=== PATIENT | male | born 1990 | race Caucasian/White ===

== ENCOUNTER 2022-07-05 16:40 | Emergency (ER) | payer MEDICARE, MEDICAID, SELFPAY ==
[2022-07-05] VITALS (7 sets, daily range): BP systolic 123–155; BP diastolic 65–113; PULSE 85–99; RESP 16–20; TEMP 36.5–36.9; O2SAT 97–99; BMI 40.4
--- NOTE | 2022-07-05 17:16 | EX.ED.VIS.PS ---
HPI HPI - Psych History of Present Illness Chief Complaint: Suicidal Narrative Narrative: 31-year-old male presenting from [facility]. Apparently he was telling people there that he is hearing voices and they are telling him to hurt himself. He cannot tell me what the voices are saying. He is also hallucinating but cannot tell me what he is seeing. He states he himself does not feel like he wants to hurt himself. He has not been attempted hurt others. He does not know what medicines he supposed to be on. He does not know any of his medical problems. He states he just cannot remember. PFSH PFSH Home Medications benztropine 2 mg tablet 2 mg PO BID 07/05/22 [History Last Taken Unknown] lamotrigine 25 mg tablet 50 mg PO BID 07/05/22 [History Last Taken Unknown] metformin 500 mg tablet,extended release 24 hr 1,000 mg PO BID 07/05/22 [History Last Taken Unknown] olanzapine 10 mg tablet 15 mg PO DAILY 07/05/22 [History Last Taken Unknown] olanzapine 15 mg tablet 15 mg PO QHS 07/05/22 [History Last Taken Unknown] paliperidone 6 mg tablet,extended release 24 hr 6 mg PO DAILY 07/05/22 [History Last Taken Unknown] propranolol 20 mg tablet 20 mg PO BID 07/05/22 [History Last Taken Unknown] Allergy/AdvReac Type Severity Reaction Status Date / Time No Known Allergies Allergy Verified 07/05/22 16:47 Social History Smoking Status: Unknown if ever smoked ROS [facility] ED Constitutional Constitutional ED: Denies chills or fever(s) ENT ENT ED: Denies rhinorrhea or sore throat Cardiovascular Cardiovascular: Denies chest pain or palpitations Respiratory/Chest Respiratory/Chest: Denies cough or dyspnea Gastrointestinal Gastrointestinal: Denies abdominal pain, constipation, nausea or vomiting Genitourinary Genitourinary ED: Denies dysuria Musculoskeletal Musculoskeletal: Denies arthralgias Integumentary Denies abscess Neurologic Neurologic: Denies headache(s) Psychiatric Psychiatric: Reports other Details: Hearing voices and visual hallucinations. Endocrine Endocrinology: Denies polydipsia or polyphagia EXAM Physical Exam Const Vital Signs: 07/05/22 16:42 07/05/22 18:29 07/05/22 18:39 Temperature 98.5 F 97.7 F L Temperature Source Temporal Temporal Pulse Rate 99 85 Respiratory Rate 16 16 Blood Pressure 155/113 H 123/83 H Blood Pressure Mean 127 96 Pulse Ox 98 97 Oxygen Delivery Method Room Air Room Air 07/05/22 19:18 07/05/22 20:37 07/05/22 22:27 Temperature Temperature Source Pulse Rate 90 86 Respiratory Rate 16 16 20 H Blood Pressure 126/65 H Blood Pressure Mean 85 Pulse Ox 99 99 99 Oxygen Delivery Method Room Air Room Air Room Air Positive well nourished, obese and unkempt General Appearance ED: unkempt and NAD; Negative for pallor Nutritional Appearance: obese HEENT Reports moist mucous membranes normocephalic and atraumatic Eyes PERRL and EOMs intact bilaterally Neck no lymphadenopathy Resp normal respiratory effort and clear to auscultation bilaterally GI non-tender Neuro oriented x3 and CN's II-XII intact bilaterally Sensorium / Orientation: alert Psych Appearance: unkempt and bizarre Attitude: bizarre Activity / Motor Behavior: disorganized Thought Process: disorganized and confused Thought Content: No suicidality, No homicidality and hallucination(s) Positive for auditory and visual Attention / Concentration: attention grossly impaired and concentration grossly impaired Memory / Cognition: cognition grossly impaired Insight: poor Judgement: poor Skin General Skin Exam: Negative for jaundice or pallor MDM MDM MDM Narrative Medical decision making narrative: Patient discussed with social work. tie up worker was able to determine that he was saying he was suicidal at the facility he was at. He apparently has a history of paranoid schizophrenia and when he is in the state he has been known to run away from the home. He was reported to me that the last time he felt this way he ran away and was found 5 days later eating grass. Patient unable to give me too much information but the manager social was able to speak with the people his facility and they stated that he repeatedly said he was having a nervous breakdown. Blood work is obtained and is a slight leukocytosis at 14.6. Hemoglobin hematocrit are stable. Renal function and electrolytes are fairly normal with exception of potassium 3.4. This was repleted orally. LFTs are within normal limits. EtOH negative. Urine drug screen positive for cannabinoids. Rapid COVID is negative. I think his white blood cell count is likely reactive. Patient medically clear at this time. Patient will be signed out to incoming ED provider for monitoring. Currently he is awaiting assessment by [facility]. This is likely where he will go. Impression: 1. Leukocytosis 2. History of paranoid schizophrenia 3. Suicidal ideation 4. Delirium 5. Visual hallucinations 6. Audible hallucinations Lab Data Attestation: I reviewed the patient's lab results. Labs: Laboratory Results - last 24 hr 07/05/22 07/05/22 07/05/22 17:30 17:30 17:30 WBC 14.6 H RBC 4.89 Hgb 14.5 Hct 43.3 MCV 88.5 MCH 29.7 MCHC 33.5 RDW Std Deviation 42.7 RDW Coeff of Bianca 13.2 Plt Count 306 MPV 9.6 Immature Gran % (Auto) 0.600 Neut % (Auto) 73.2 H Lymph % (Auto) 17.1 L Adams % (Auto) 5.3 Eos % (Auto) 3.2 Baso % (Auto) 0.6 Absolute Neuts (auto) 10.7 H Absolute Lymphs (auto) 2.49 Nucleated RBC % 0 Sodium 138 Potassium 3.4 L Chloride 105 Carbon Dioxide 25.0 Anion Gap 8 BUN 6 L Creatinine 0.88 Estim Creat Clear Calc 128.35 Est GFR (MDRD) Af Amer 128 Est GFR (MDRD) Non-Af 106 BUN/Creatinine Ratio 6.8 L Glucose 132 H Calcium 9.1 Total Bilirubin 0.40 AST 18 ALT 45 Alkaline Phosphatase 80 Total Protein 7.5 Albumin 3.9 Globulin 3.6 Albumin/Globulin Ratio 1.1 Urine Opiates Screen Urine Methadone Screen Ur Barbiturates Screen Ur Phencyclidine Scrn Ur Amphetamines Screen MDMA (Ecstasy) Screen U Benzodiazepines Scrn Urine Cocaine Screen U Cannabinoids Screen Ur Drug Screen Comment Ethyl Alcohol 5.0 07/05/22 17:30 WBC RBC Hgb Hct MCV MCH MCHC RDW Std Deviation RDW Coeff of Bianca Plt Count MPV Immature Gran % (Auto) Neut % (Auto) Lymph % (Auto) Adams % (Auto) Eos % (Auto) Baso % (Auto) Absolute Neuts (auto) Absolute Lymphs (auto) Nucleated RBC % Sodium Potassium Chloride Carbon Dioxide Anion Gap BUN Creatinine Estim Creat Clear Calc Est GFR (MDRD) Af Amer Est GFR (MDRD) Non-Af BUN/Creatinine Ratio Glucose Calcium Total Bilirubin AST ALT Alkaline Phosphatase Total Protein Albumin Globulin Albumin/Globulin Ratio Urine Opiates Screen NEGATIVE Urine Methadone Screen NEGATIVE Ur Barbiturates Screen NEGATIVE Ur Phencyclidine Scrn NEGATIVE Ur Amphetamines Screen NEGATIVE MDMA (Ecstasy) Screen NEGATIVE U Benzodiazepines Scrn NEGATIVE Urine Cocaine Screen NEGATIVE U Cannabinoids Screen POSITIVE H Ur Drug Screen Comment Ethyl Alcohol Discharge Plan Triage Chief Complaint: Suicidal ED Provider: Chalino Da Silva Dx/Rx/DC Orders Prescriptions: No Action olanzapine 10 mg Tablet 15 mg PO DAILY lamotrigine 25 mg Tablet 50 mg PO BID benztropine 2 mg Tablet 2 mg PO BID olanzapine 15 mg Tablet 15 mg PO QHS propranolol 20 mg Tablet 20 mg PO BID metformin 500 mg Tablet Extended Release 24 Hr 1,000 mg PO BID paliperidone 6 mg Tablet Extended Release 24hr 6 mg PO DAILY Primary Care Provider: Care Physician,No Primary Referrals: NOT,DEFINED [Non-Staff] -
[2022-07-05 17:42] LABS: Absolute Lymphocyte Count 2.49 X10^3/uL (0.83-4.51); Absolute Neutrophil Count 10.7 X10^3/uL (2.0-7.7); Basophil# 0.09 X10^3/uL; Basophil% 0.6 % (0-1); Eosinophil# 0.47 X10^3/uL; Eosinophils% 3.2 % (0-5); Hematocrit 43.3 % (40-54); Hemoglobin 14.5 g/dL (13.0-16.5); Lymphocyte # 2.49 X10^3/ul (0.83-4.51); Lymphocyte % 17.1 % (19-41); Mean Corp Hgb Conc 33.5 g/dL (32-36); Mean Corpuscular Hgb 29.7 pg (27.0-32.0); Mean Corpuscular Volume 88.5 fL (80-94); Mean Platelet Vol. 9.6 fl (6.2-12.0); Monocyte# 0.77 X10^3/uL; Monocyte% 5.3 % (0-10); NRBC Flagged by Analyzer 0 % (0-5); Neutrophil # 10.65 X10^3/uL (2.7-7.7); Neutrophil % 73.2 % (47-70); Platelet Count 306 K/mm3 (150-450); RBC Distribution Width CV 13.2 % (11.6-14.6); RBC Distribution Width SD 42.7 fl (35.1-43.9); Red Blood Count 4.89 M/mm3 (4.6-6.2); White Blood Count 14.6 K/mm3 (4.4-11.0)
[2022-07-05 17:48] LABS: Amphetamine Urine VISTA NEGATIVE (<1000 ng/mL); Barbiturate Urine VISTA NEGATIVE (< 200 ng/mL); Benzodiazepine Urine VISTA NEGATIVE (< 200 ng/mL); Cocaine Urine VISTA NEGATIVE (< 300 ng/mL); Ecstacy Urine VISTA NEGATIVE (< 500 ng/mL); Methadone Urine VISTA NEGATIVE (< 300 ng/mL); PCP Urine VISTA NEGATIVE (< 25 ng/mL); THC Urine VISTA POSITIVE (< 50 ng/mL); Vista UDS pH Range 6
--- NOTE | 2022-07-05 18:09 | CM.ED ---
THAD Note Referral Source: Patient presented to the ED via cloth finishing range back tender's department on an pink slip. SW called staff at [facility]. SW spoke to Sean Mcintyre and he said that patient is a good jose l (which he stated repeatedly). Sean said that patient was fine around 3:30pm and took his meds and said something is going on with me. Patient told staff he is having a nervous breakdown. Sean said that he asked patient if he is suicidal and patient said a little bit. Sean said that when the cloth finishing range back tender came patient had a weird look and felt that something is going up. Patient has been at [facility] and per Sean can return at discharge. Patient is taking his medication as prescribed. His diagnosis is paranoid schizophrenia. Patient had an appointment with his psychiatric provider on Sunday at [facility]. Patient's guardian is Caleb Rock [phone]. Sean said that patient took off for a week a couple of months ago and he was in [place] and they found him eating grass. Chief Complaint: SW met with patient in the ED room 4. Patient was laying down and made no eye contact. SW called patient the wrong name and he was able to correct this medical technical writer. SW asked why patient is in the ED and patient said I was seeing and hearing thing. Patient said I can't see right. Patient said that he was suicidal earlier. SW asked if patient had a plan regarding SI and patient said not that I can think of. SW asked what the voices were stating and he said i can't remember. SW asked what he was seeing and he said I don't know. Marital Status: Single Living Situation: Lives at [facility] in [place]. Been there 6 months. Support: Sean at [facility] and his casemanager from [employer], Heidi. History: None Education: Patient reports that the last grade he completed was the 11th grade. He was in special education classes. He receives disability. Mental Health: Per staff patient has been diagnosed with Paranoid Schizophrenia. Patient receives services through [employer]. He has a rn case manager, Heidi and a DRAFTING LAYOUT WORKER, Katrin Delaney. Patient said that previously he has been hospitalized at [facility] and when asked about any other places he said Not that I can think of. Triggers or Stressors: SW asked about any triggers or stressors and patient said not that I can think of. Coping Skills: Watching TV Abuse Issues: Patient stated not that I can think of Substance Abuse: not that I can think of Risk To Self and Others Suicidal: Patient reports he was suicidal earlier. When asked about a plan he said not that I can think of and when asked about attempts patient said not that I can think of. Patient said that he doesn't want to . Homicidal: Patient was asked about HI and he said not that I can think of Violence: Patient was asked about violence to self and he said not that I can think of. SW asked about violence to others and patient said not that I can think of . SW asked about violence to objects and patient said not that I can think of. Appearance: Disheveled. Directable Mood and Affect: Bizarre behavior with intense eyes however, patient does not make eye contact. Communication Patterns: Responds to questions with answer not that I can think of frequently when asked questions. Does not offer any information. Cyclical in his answers and response patterns. Thought Process: Patient reports AH/VH. Patient does appear to be attending to internal stimuli. General Intellectual Functioning: below average. Patient was asked if he has a DD worker and he said not that I can think of. Judgment: Poor Insight: Poor Staff at [facility] felt that generally patient does well however today, all of a sudden he voiced he was having a nervous breakdown and was suicidal. Due to patient's current presentation and voicing of having AH/VH and suicidal thoughts patient would benefit from inpatient psych for crisis stabilization and med management. THAD consulted with MD Da Silva. Plan is for inpatient psych Madeline MA
[2022-07-05 18:21] LABS: ALB/GLOB Ratio 1.1 RATIO (0.9-2.4); AST(SGOT) 18 U/L (15-37); Alanine Aminotransfer ALT/SGPT 45 U/L (16-61); Albumin, Serum 3.9 g/dL (3.2-5.0); Alkaline Phosphatase 80 U/L (45-117); Anion Gap 8 (5-15); BUN 6 mg/dL (7-18); BUN/Creat Ratio 6.8 RATIO (10-20); Calcium,Total 9.1 mg/dL (8.5-10.1); Chloride 105 mmol/L (98-107); Creatinine, Serum 0.88 mg/dL (0.70-1.30); EST Glomerular Filtration Rate 106 mL/min (>60); Est Glom Filt Rate - Afr Amer 128 mL/min (>60); Estimated Creatinine Clearance 128.35 ml/min; Globulin 3.6 g/dL (2.2-4.2); Glucose 132 mg/dL (74-106); Potassium 3.4 mmol/L (3.5-5.1); Protein, Total 7.5 g/dL (6.4-8.2); Sodium Level 138 mmol/L (136-145)
--- NOTE | 2022-07-05 18:30 | CM.ED ---
THAD spoke to Rona at [facility]. They have beds. THAD sent referral fax to [facility]. Madeline MA
--- NOTE | 2022-07-05 18:57 | CM.ED ---
THAD spoke to oRna at [facility]. He was declined. THAD called [facility]. They have beds. THAD faxed referral to [facility] for patient. Fax confirmation received Madeline Cunha
[2022-07-05] MEDS: Potassium Chloride Oral Tablet 20 MEQ PO (19:25)
--- NOTE | 2022-07-05 20:45 | ED.RN ---
PHONE WITH DAYSI FROM [facility]. UPDATES GIVEN
--- NOTE | 2022-07-05 20:51 | CM.ED ---
THAD called [facility]. They were still reviewing paperwork on patient. THAD gave them the phone number for ED Main number. THAD received call from [facility]. She asked if there would be a letter from [facility] stating patient could come back. THAD called [facility] and it went to voice mail and this principal technical writer did leave a message for them requesting that they fax letter to [facility] stating patient could come back. THAD called [facility], in intake. She said that [facility] had to review patient's insurance prior to acceptance. THAD explained that no one is at [facility] now and this principal technical writer left a message. [facility] said well, it's documented that they said that they would take him back. Rosalina RN updated [facility] on patient's medical condition. sandfill operator surface advised. Madeline MA
[2022-07-06] VITALS (9 sets, daily range): BP systolic 129–143; BP diastolic 84; PULSE 85; RESP 16–18; O2SAT 95–99
--- NOTE | 2022-07-06 10:13 | CM.ED ---
Social Work Note SW placed a call to [facility] - they have not received a letter yet from [facility]. SW placed a call to [facility] and left message requesting a letter be faxed to [facility] stating pt can return at discharge. SW provided [facility] fax number. SW to continue to follow. Diana Smith WET CHEMISTRY ANALYST, DOCUMENT CONTROL CLERK
--- NOTE | 2022-07-06 11:13 | CM.ED ---
Social Work Note THAD placed another call to [facility]. Initially no one answered and then Sean picked up the phone. Sean states that he has reached out to pt's guardian Caleb Rock who stated that he was going to take care of it. Sean asked if he still needed to send a letter too. THAD informed Sean that per [facility], they need a letter from [facility] stating that pt can return there at discharge. Sean states that he can write the letter and fax it to [facility]. Sean states that he has [facility]'s fax number. THAD placed a call to [facility]. [facility] states that they can accept pt as soon as they get the letter from the facility stating they will take pt back. THAD informed staff at [facility] that this worker reached out to [facility] who stated they will get the letter faxed to [facility]. [facility] states that as soon as they get the letter, they will call this worker back with accepting information. Diana Smith PHARMACY RESIDENT, DIRECTOR INVESTMENT BANKING
--- NOTE | 2022-07-06 11:43 | CM.ED ---
Social Work Note THAD received call from Quinn at [facility] stating they can accept pt. Accepting physician is JERAMIE Taylor. Pt is going to Intensive Unit. RN to RN is [phone]. Quinn states they need their name on top of the [place]. Quinn also asked for Guardianship paperwork. THAD reviewed chart, no Guardianship paperwork on file. [facility] states they can accept pt regardless, they just like to have the Guardianship paperwork on file. THAD placed a call to [facility] and spoke with Sean. THAD updated Sean that pt will be going to [facility] and they requested Guardianship paperwork to be faxed. Sean states he may have a copy for pt, asked that this worker call pt's Guardian Caleb Rock to get documents. THAD placed a call to Caleb Rock's office and requested pt's Guardianship paperwork be faxed to [facility]. THAD provided fax number. Caleb Rock's office states they will fax over Guardianship paperwork. THAD faxed [place] to [facility]. THAD updated Adrianna, secretary bookkeeper that pt has been accepted to [facility] and pt can discharge. Adrianna, [place] to arrange transportation. Plan: [facility] Diana Smith DERIVATIVES TRADER, FOLDER OPERATOR
--- NOTE | 2022-07-06 11:53 | ED.RN ---
PHYSICIANS ETA 1 HOUR 13:00
--- NOTE | 2022-07-06 13:31 | CM.ED ---
Social Work Note THAD did place another call to pt's Legal Guardian Abad Rock office and requested to speak to him. Per staff, Abad is not available. THAD asked staff at Abad Rock's office to update Abad that pt did discharge to [facility] today. Staff states they will update Abad. Diana Smith MUSIC COMPOSER, REGISTERED RADIATION THERAPIST
== END 2022-07-06 13:13 ==
PROVIDERS: Emergency Provider Student in an Organized Health Care Education/Training Program; Visit Provider Student in an Organized Health Care Education/Training Program
DX: R45.851 Suicidal ideations (principal); R41.0 Disorientation, unspecified; D72.829 Elevated white blood cell count, unspecified; R44.1 Visual hallucinations
CPT/HCPCS: 36415; 80053; 80307; 82077; 85025; 87811; 99284

== ENCOUNTER 2022-10-01 04:56 | Emergency (ER) | payer MEDICARE, MEDICAID, SELFPAY ==
[2022-10-01 05:01] VITALS: BP 130/92; PULSE 90; RESP 15; TEMP 35.8; O2SAT 96; BMI 33.9
--- NOTE | 2022-10-01 05:26 | EX.ED.DYSGE1 ---
HPI History of Present Illness Chief Complaint: Alt LOC Informant: patient Narrative Narrative: 32-year old male presenting to the emergency department after being found outside during the night. Patient is [facility] from [facility]. [facility] he reportedly [facility] off from. He was found outside shivering. He does not have any issues with he appears wet. It is currently Sunday morning on 01 October with an outside temperature of around 34 degrees and some occasional flurries. Patient states that he is cold but denies any pain. He denies any injury. He does not recall why he left home. He reportedly has a history of paranoid schizophrenia and has been noted to leave home. PFSH PFSH Home Medications metformin 500 mg tablet,extended release 24 hr 1,000 mg PO BID 07/05/22 [History Last Taken Unknown] propranolol 20 mg tablet 60 mg PO DAILY 07/05/22 [History Last Taken Unknown] aripiprazole 2 mg tablet 20 mg PO QHS 10/01/22 [History Last Taken Unknown] atorvastatin 20 mg tablet 10 mg PO QHS 10/01/22 [History Last Taken Unknown] cholecalciferol (vitamin D3) 50 mcg (2,000 unit) capsule (Vitamin D3) 2,000 unit PO DAILY 10/01/22 [History Last Taken Unknown] clozapine 100 mg tablet 300 mg PO QHS 10/01/22 [History Last Taken Unknown] docusate sodium 100 mg capsule 100 mg PO BID 10/01/22 [History Last Taken Unknown] omega-3 fatty acids-fish oil 300 mg-1,000 mg capsule 1,000 cap PO BID 10/01/22 [History Last Taken Unknown] prazosin 2 mg capsule 2 mg PO QHS 10/01/22 [History Last Taken Unknown] sennosides 8.6 mg tablet (Senna Laxative) 8.6 mg PO DAILY 10/01/22 [History Last Taken Unknown] trazodone 100 mg tablet 100 mg PO QHS 10/01/22 [History Last Taken Unknown] Allergy/AdvReac Type Severity Reaction Status Date / Time No Known Allergies Allergy Verified 07/05/22 16:47 Social History Smoking Status: Unknown if ever smoked ROS ROS ED Review of Systems ROS Unobtainable: due to mental condition EXAM Physical Exam Narrative Exam Narrative: 32-year-old male laying in bed. He is shivering and has approximately 10 blankets on him. Const Vital Signs: 10/01/22 05:01 10/01/22 05:14 Temperature 96.5 F L Temperature Source Temporal Pulse Rate 90 Respiratory Rate 15 Respiratory Effort Non-Labored Respiratory Pattern Normal Blood Pressure 130/92 H Blood Pressure Mean 104 Pulse Ox 96 Oxygen Delivery Method Room Air Positive well nourished and well developed General Appearance ED: well developed HEENT Reports normocephalic, head/scalp atraumatic and moist mucous membranes Eyes PERRL and EOMs intact bilaterally Neck no lymphadenopathy, supple and no JVD Resp normal respiratory effort and clear to auscultation bilaterally Cardio regular rate, regular rhythm and no murmurs GI normal to inspection, nondistended, normoactive bowel sounds and non-tender Palpation: soft Back/Spine no CVA tenderness and normal ROM Extremity normal to inspection General Extremety ED: Negative for edema General Extremity: Negative for edema Neuro CN's II-XII intact bilaterally Sensorium / Orientation: alert Motor Exam: strength 5/5 throughout Psych mental status grossly normal Mood & Affect: Negative for depressed or tearful Skin no rashes or lesions noted and no wounds MDM MDM MDM Narrative Medical decision making narrative: Patient was removed from his wet clothing. Multiple warm blankets were given. He has been resting comfortably. I have never met the individual but from what I can read it seems to be his baseline. CBC and CMP were obtained which were negative. CO2 of 26 and anion gap of 11. We will be contacting the penitentiary to come get him. 's office is involved in this case. Lab Data Attestation: I reviewed the patient's lab results. Labs: Laboratory Results - last 24 hr 10/01/22 10/01/22 05:30 05:30 WBC 10.8 RBC 5.11 Hgb 14.8 Hct 46.2 MCV 90.4 MCH 29.0 MCHC 32.0 RDW Std Deviation 42.5 RDW Coeff of Bianca 12.9 Plt Count 283 MPV 9.9 Immature Gran % (Auto) 0.400 Neut % (Auto) 74.3 H Lymph % (Auto) 16.4 L [place] % (Auto) 6.7 Eos % (Auto) 1.7 Baso % (Auto) 0.5 Absolute Neuts (auto) 8.0 H Absolute Lymphs (auto) 1.77 Nucleated RBC % 0 Sodium 140 Potassium 3.7 Chloride 103 Carbon Dioxide 26.0 Anion Gap 11 BUN 13 Creatinine 0.85 Estim Creat Clear Calc 135.67 Est GFR (MDRD) Af Amer 133 Est GFR (MDRD) Non-Af 110 BUN/Creatinine Ratio 15.2 Glucose 60 L Calcium 9.5 Total Bilirubin 0.80 AST 34 ALT 50 Alkaline Phosphatase 77 Total Protein 7.7 Albumin 4.3 Globulin 3.4 Albumin/Globulin Ratio 1.3 Discharge Plan Triage Chief Complaint: Alt LOC ED Provider: Fadi Holland Dx/Rx/DC Orders Clinical Impression: Cold exposure, Paranoid schizophrenia Instructions: ED Schizophrenia, Paranoid Type Prescriptions: No Action propranolol 20 mg Tablet 60 mg PO DAILY metformin 500 mg Tablet Extended Release 24 Hr 1,000 mg PO BID sennosides [Senna Laxative] 8.6 mg Tablet 8.6 mg PO DAILY atorvastatin 20 mg tablet 10 mg PO QHS clozapine 100 mg tablet 300 mg PO QHS trazodone 100 mg tablet 100 mg PO QHS docusate sodium 100 mg capsule 100 mg PO BID prazosin 2 mg capsule 2 mg PO QHS aripiprazole 2 mg Tablet 20 mg PO QHS omega-3 fatty acids-fish oil 300-1,000 mg capsule 1,000 cap PO BID cholecalciferol (vitamin D3) [Vitamin D3] 50 mcg (2,000 unit) capsule 2,000 unit PO DAILY Primary Care Provider: Care Physician,No Primary Referrals: Care Physician,No Primary [Primary Care Provider] - Activity Restrictions/Additional Instructions: Please follow-up with your family doctor and your psychiatrist. Disposition Disposition: Home, Self Care
[2022-10-01 05:43] LABS: Absolute Lymphocyte Count 1.77 X10^3/uL (0.83-4.51); Basophil# 0.05 X10^3/uL; Basophil% 0.5 % (0-1); Eosinophil# 0.18 X10^3/uL; Eosinophils% 1.7 % (0-5); Hematocrit 46.2 % (40-54); Hemoglobin 14.8 g/dL (13.0-16.5); Lymphocyte # 1.77 X10^3/ul (0.83-4.51); Lymphocyte % 16.4 % (19-41); Mean Corpuscular Volume 90.4 fL (80-94); Mean Platelet Vol. 9.9 fl (6.2-12.0); Monocyte# 0.72 X10^3/uL; Monocyte% 6.7 % (0-10); NRBC Flagged by Analyzer 0 % (0-5); Neutrophil # 8.01 X10^3/uL (2.7-7.7); Neutrophil % 74.3 % (47-70); Platelet Count 283 K/mm3 (150-450); RBC Distribution Width CV 12.9 % (11.6-14.6); RBC Distribution Width SD 42.5 fl (35.1-43.9); Red Blood Count 5.11 M/mm3 (4.6-6.2); White Blood Count 10.8 K/mm3 (4.4-11.0)
[2022-10-01 06:00] LABS: ALB/GLOB Ratio 1.3 RATIO (0.9-2.4); AST(SGOT) 34 U/L (15-37); Alanine Aminotransfer ALT/SGPT 50 U/L (16-61); Albumin, Serum 4.3 g/dL (3.2-5.0); Alkaline Phosphatase 77 U/L (45-117); Anion Gap 11 (5-15); BUN 13 mg/dL (7-18); BUN/Creat Ratio 15.2 RATIO (10-20); Calcium,Total 9.5 mg/dL (8.5-10.1); Chloride 103 mmol/L (98-107); Creatinine, Serum 0.85 mg/dL (0.70-1.30); EST Glomerular Filtration Rate 110 mL/min (>60); Est Glom Filt Rate - Afr Amer 133 mL/min (>60); Estimated Creatinine Clearance 135.67 ml/min; Globulin 3.4 g/dL (2.2-4.2); Glucose 60 mg/dL (74-106); Potassium 3.7 mmol/L (3.5-5.1); Protein, Total 7.7 g/dL (6.4-8.2); Sodium Level 140 mmol/L (136-145)
--- NOTE | 2022-10-01 06:46 | ED.RN ---
called and left message with post acute care registered nurse to come come clam picker patient no answer left message
--- NOTE | 2022-10-01 07:02 | ED.RN ---
attempted to call powderly elisha no answer at this time
--- NOTE | 2022-10-01 07:50 | NURSING ---
attempted to call Dahlia og with no answer.
[2022-10-01 09:14] VITALS: BP 130/88; PULSE 67; RESP 18; O2SAT 97
--- NOTE | 2022-10-01 09:20 | ED.RN ---
attempted to call priyank og and caregiver to inform of pt discharge. no answer.
--- NOTE | 2022-10-01 10:03 | ED.RN ---
THIS RN CALLED JUNIOR [phone]. PHONE CALL WAS FORWARDED TO [facility], THIS RN LEFT A MESSAGE WITH CALL BACK NUMBER.
--- NOTE | 2022-10-01 10:06 | ED.RN ---
THIS RN CALLED LEGAL GUARDIAN IN REGARD TO PATIENT CARE. THERE WAS NO ANSWER AND THIS RN WAS UNABLE TO LEAVE A VOICEMAIL DUE TO MAILBOX BEING FULL.
--- NOTE | 2022-10-01 10:20 | ED.RN ---
Phone call made to [facility] and pt's legal guardian. No answer at [facility]ahlia Velazquez and pt's legal guardian has a full mailbox.
--- NOTE | 2022-10-01 10:23 | ED.RN ---
THIS RN CONTACTED [facility] ([phone]) IN ORDER TO FIND MORE CONTACT INFORMATION FOR MEAGHAN FITZGERALD OR DO A WELL CHECK TO THE FACILITY SINCE THEY ARE UNABLE TO BE REACHED. PER DISPATCH WILL LOOK INTO FINDING MORE CONTACT INFO, AND SEND OFFICER TO PT LISTED ADDRESS FOR A WELL CHECK.
--- NOTE | 2022-10-01 11:12 | ED.RN ---
[facility] OFFICE CONTACTED THIS RN TO REPORT THAT THEY DID A WELL CHECK AT [facility]. PER OFFICER JOSÉ MIGUEL, THERE IS ONLY ONE STAFF MEMBER PRESENT AT [facility] TODAY, AND HE CANNOT LEAVE TO TAKE PT BACK HOME. STAFF MEMBER TO CALL IN TO ED TO RECEIVE PT D/C INSTRUCTIONS VIA PHONE CALL. PT CHANGED INTO CLEANED PAPER SCRUBS AND TAKEN HOME BY OFFICER JOSÉ MIGUEL.
== END 2022-10-01 11:15 | disposition home or self-care (01) ==
PROVIDERS: Emergency Provider Emergency Medicine; Visit Provider Emergency Medicine
DX: T69.9XXA Effect of reduced temperature, unspecified, initial encounter (principal); F20.0 Paranoid schizophrenia
CPT/HCPCS: 80053; 85025; 99285

== ENCOUNTER 2022-10-02 16:20 | Emergency (ER) | payer MEDICARE, MEDICAID, SELFPAY ==
--- NOTE | 2022-10-02 16:25 | CM.ED ---
THAD Note THAD called [facility] and left voice mail for staff to call this investigative writer. THAD called Caleb Rock, guardian for patient. Voice mail full and this investigative writer unable to leave message. THAD called Caleb Rock back and he gave verbal consent to Melly Blair and Ashleigh RN's for patient. THAD received a call from Sean at [facility]. Sean said that at lunch patient was acting odd and eating real fast. Sean said that today patient had his shorts on and I don't know if he crapped his pants but he had his shorts and underwear done to his knees and stuffed tobacco in the coffee cup. Patient, per Sean, likes to run to the Scan. Sean said that he spoke to the casemanager, Heidi from [facility],who agreed patient needs a SNF and thus she will be looking for a higher level of care for patient. Sean said that the patient told the Lt to bite me and that he was suicidal. Patient said that he was going to fall and kill himself. Patient was admitted to [facility] on 07/06/22 and returned to [facility] on 08/14/22. Heidi's phone number [phone] and cell [phone]. THAD called Caleb Rock. Office closed THAD called Heidi's cell phone and left voice mail inquiring about patients guardians phone number for consent to treat. Madeline MA
--- NOTE | 2022-10-02 16:38 | EKG12_ITS ---
Test Reason : MEDICAL CLEARANCE Blood Pressure : / mmHG Vent. Rate : 107 BPM Atrial Rate : 107 BPM P-R Int : 152 ms QRS Dur : 086 ms QT Int : 350 ms P-R-T Axes : 065 043 057 degrees QTc Int : 467 ms Sinus tachycardia Otherwise normal ECG Confirmed by MARILYNN CARDONA, HORACE ([id number]), editorial assistant CYNTHIA DONIS ([id number]) on 10/04/2022 8:09:04 AM Referred By: Confirmed By:HORACE SUBRAMANIAN MD
--- NOTE | 2022-10-02 16:39 | ED.RN ---
UPON PATIENT ARRIVAL PATIENT SCREAMING, YELLING, CUSSING, SWINGING AT EMS. PT UNCOOPERATIVE AND THREATENING STAFF, RESTRAINTS APPLIED UPON TRANSFER TO BED FROM EMS COT
--- NOTE | 2022-10-02 16:41 | EDS_ITS ---
HPI HPI - Psych History of Present Illness Chief Complaint: Suicidal Informant: patient, EMS and police/information operator Narrative Narrative: Patient evidently has been having increasing bizarre behavior for the last day or so. He ran away from his retirement and was seen here the other day. However, he does have a history of doing that. By itself that was not abnormal. He was seen here he was back to his baseline doing better. He went back to the retirement and was doing okay. More agitation today. Then bizarre behavior. He was taking off his close. He went outside and took off most of his close. 911 was called. He said he had talked to staff about contraband. They are not sure what this means but there was suspicion if he had taken somebody else's medicine or different medicine. There is also concern about paranoia. He told the information operator that he had a bomb in his pants. Nothing was found other than he had placed tobacco in there. Patient is agitated. He is not making significant sense when he talks and I really cannot get any great details from him. This limits the history and completely limits review of systems. [facility] Medical History (Updated 10/02/22 @ 23:[address] Marino Nam MD) Schizophrenia Medical History unable to obtain Home Medications metformin 500 mg tablet,extended release 24 hr 1,000 mg PO BID 07/05/22 [History Last Taken Unknown] propranolol 20 mg tablet 60 mg PO DAILY 07/05/22 [History Last Taken Unknown] aripiprazole 2 mg tablet 20 mg PO QHS 10/01/22 [History Last Taken Unknown] atorvastatin 20 mg tablet 10 mg PO QHS 10/01/22 [History Last Taken Unknown] cholecalciferol (vitamin D3) 50 mcg (2,000 unit) capsule (Vitamin D3) 2,000 unit PO DAILY 10/01/22 [History Last Taken Unknown] clozapine 100 mg tablet 300 mg PO QHS 10/01/22 [History Last Taken Unknown] docusate sodium 100 mg capsule 100 mg PO BID 10/01/22 [History Last Taken Unknown] omega-3 fatty acids-fish oil 300 mg-1,000 mg capsule 1,000 cap PO BID 10/01/22 [History Last Taken Unknown] prazosin 2 mg capsule 2 mg PO QHS 10/01/22 [History Last Taken Unknown] sennosides 8.6 mg tablet (Senna Laxative) 8.6 mg PO DAILY 10/01/22 [History Last Taken Unknown] trazodone 100 mg tablet 100 mg PO QHS 10/01/22 [History Last Taken Unknown] Allergy/AdvReac Type Severity Reaction Status Date / Time No Known Allergies Allergy Verified 07/05/22 16:47 Surgical History unable to obtain Social History Smoking Status: Unknown if ever smoked ROS ROS ED ROS Narrative Unable to obtain a coherent review of systems. Review of Systems ROS Unobtainable: due to mental status EXAM Physical Exam Const Vital Signs: 10/02/22 17:14 10/02/22 18:34 10/02/22 21:17 Temperature 97.1 F L Temperature Source Temporal Pulse Rate 113 H 99 117 H Respiratory Rate 16 20 H 37 H Blood Pressure 131/79 H 109/72 106/65 Blood Pressure Mean 96 84 78 Pulse Ox 95 98 97 Oxygen Delivery Method Room Air Room Air Room Air 10/02/22 22:34 10/02/22 23:00 Temperature Temperature Source Pulse Rate 95 103 H Respiratory Rate 18 19 H Blood Pressure 121/93 H 124/77 H Blood Pressure Mean 102 92 Pulse Ox 95 97 Oxygen Delivery Method Room Air Room Air Positive well nourished, well developed and obese Constitutional Narrative: Patient is mildly unkempt but this might be just some dirtiness from today. General Appearance ED: well developed Nutritional Appearance: obese HEENT HEENT Narrative: Mucous membranes do look dry. No head or facial trauma is noted. Eyes Eyes Narrative: Pupils are about 3 mm and are reactive. No asymmetry. Neck supple and no JVD Resp normal respiratory effort and clear to auscultation bilaterally Cardio no murmurs Rate: tachycardic Rhythm: regular rhythm GI non-tender and non-distended Narrative: No sign of trauma. He had urinated on himself and there may be some stool. There is also dried pieces of tobacco throughout the area of his underwear. I see no sign of trauma. Back/Spine no CVA tenderness Psych Psych Narrative: Patient is agitated. He is even using foul language. He is upset at people but it is hard to get exactly why. He has flight of ideas. There seems to be some degree of paranoia as he states people pull are either always trying to hurt him or do something to him. But I cannot get a consistent story on what is concerning him. Attitude: paranoid Skin Rashes: no rashes and No rashes noted Trauma: Negative for abrasion MDM MDM MDM Narrative Medical decision making narrative: Patient initially calm down quite a bit after medication. We were able to get amount of restraints for a while. He then did urinate on himself while sleeping. In the process of cleaning him he woke up and got very argumentative again. He was yelling at us to burn in hell with Satan, you motherfuckers. Calling people other foul names. He was falling out of bed. For this reason we did give him more meds and put him in restraints. He actually seems to quiet down when he is in restraints. With his agitation, I did repeat his electrolytes that show significant improvement. I did do a CAT scan in case there was any trauma from yesterday's time away from his retirement that were not familiar with. The repeat electrolytes and CT scan do not show any acute process. This patient has a history of psychiatric illness and schizophrenia. I think this is likely the cause of his symptoms. Remainder of work-up including CBC, electrolytes, alcohol tox screens are negative. Plan will be placement for further management Lab Data Attestation: I reviewed the patient's lab results. Labs: Laboratory Results - last 24 hr 10/02/22 10/02/22 10/02/22 16:54 16:54 16:54 WBC 11.8 H RBC 5.16 Hgb 16.6 H Hct 47.1 MCV 91.3 MCH 32.2 H MCHC 35.2 D RDW Std Deviation 43.7 RDW Coeff of Bianca 13.1 Plt Count 370 MPV 10.9 Immature Gran % (Auto) 0.500 Neut % (Auto) 73.0 H Lymph % (Auto) 16.9 L [place] % (Auto) 8.0 Eos % (Auto) 0.9 Baso % (Auto) 0.7 Absolute Neuts (auto) 8.6 H Absolute Lymphs (auto) 1.99 Nucleated RBC % 0 Sodium 144 Potassium 3.9 Chloride 107 Carbon Dioxide 18.0 L Anion Gap 19 H BUN 22 H Creatinine 1.36 H Estim Creat Clear Calc 84.80 Est GFR (MDRD) Af Amer 78 Est GFR (MDRD) Non-Af 64 BUN/Creatinine Ratio 16.2 Glucose 114 H Calcium 9.8 Salicylates Urine Opiates Screen Urine Methadone Screen Acetaminophen Ur Barbiturates Screen Ur Phencyclidine Scrn Ur Amphetamines Screen MDMA (Ecstasy) Screen U Benzodiazepines Scrn Urine Cocaine Screen U Cannabinoids Screen Ur Drug Screen Comment Ethyl Alcohol < 3.0 10/02/22 10/02/22 10/02/22 16:54 21:51 22:11 WBC RBC Hgb Hct MCV MCH MCHC RDW Std Deviation RDW Coeff of Bianca Plt Count MPV Immature Gran % (Auto) Neut % (Auto) Lymph % (Auto) [place] % (Auto) Eos % (Auto) Baso % (Auto) Absolute Neuts (auto) Absolute Lymphs (auto) Nucleated RBC % Sodium 144 Potassium 3.7 Chloride 111 H Carbon Dioxide 19.0 L Anion Gap 14 BUN 16 Creatinine 0.70 Estim Creat Clear Calc 164.75 Est GFR (MDRD) Af Amer 168 Est GFR (MDRD) Non-Af 139 BUN/Creatinine Ratio 23.0 H Glucose 89 Calcium 8.7 Salicylates 3.1 Urine Opiates Screen NEGATIVE Urine Methadone Screen NEGATIVE Acetaminophen < 2.0 L Ur Barbiturates Screen NEGATIVE Ur Phencyclidine Scrn NEGATIVE Ur Amphetamines Screen NEGATIVE MDMA (Ecstasy) Screen NEGATIVE U Benzodiazepines Scrn NEGATIVE Urine Cocaine Screen NEGATIVE U Cannabinoids Screen NEGATIVE Ur Drug Screen Comment Ethyl Alcohol Radiography Diagnostic Testing: Clinical Impression(s) from Imaging Studies Brain CT 10/02/22 20:47 IMPRESSION: No evidence of acute intracranial abnormality. Electronically Signed: Chase Jeffers MD at 22:47 EST , Discharge Plan Triage Chief Complaint: Suicidal ED Provider: Marino Nam Dx/Rx/DC Orders Clinical Impression: Acute exacerbation of chronic paranoid schizophrenia Prescriptions: No Action propranolol 20 mg Tablet 60 mg PO DAILY metformin 500 mg Tablet Extended Release 24 Hr 1,000 mg PO BID sennosides [Senna Laxative] 8.6 mg Tablet 8.6 mg PO DAILY atorvastatin 20 mg tablet 10 mg PO QHS clozapine 100 mg tablet 300 mg PO QHS trazodone 100 mg tablet 100 mg PO QHS docusate sodium 100 mg capsule 100 mg PO BID prazosin 2 mg capsule 2 mg PO QHS aripiprazole 2 mg Tablet 20 mg PO QHS omega-3 fatty acids-fish oil 300-1,000 mg capsule 1,000 cap PO BID cholecalciferol (vitamin D3) [Vitamin D3] 50 mcg (2,000 unit) capsule 2,000 unit PO DAILY Primary Care Provider: Care Physician,No Primary Referrals: Care Physician,No Primary [Primary Care Provider] - Disposition Disposition: Psychiatric Hospital or Unit Discharge Location: [facility] Discharge Date/Time: 10/03/22 15:18
[2022-10-02] MEDS: Ziprasidone IM 20 MG/ML VIAL IM (16:49)
[2022-10-02] MEDS: LORazepam 2 MG/ML Syringe IM (16:51)
[2022-10-02 17:04] LABS: Absolute Lymphocyte Count 1.99 X10^3/uL (0.83-4.51); Absolute Neutrophil Count 8.6 X10^3/uL (2.0-7.7); Basophil# 0.08 X10^3/uL; Basophil% 0.7 % (0-1); Eosinophil# 0.11 X10^3/uL; Eosinophils% 0.9 % (0-5); Hematocrit 47.1 % (40-54); Hemoglobin 16.6 g/dL (13.0-16.5); Lymphocyte # 1.99 X10^3/ul (0.83-4.51); Lymphocyte % 16.9 % (19-41); Mean Corp Hgb Conc 35.2 g/dL (32-36); Mean Corpuscular Hgb 32.2 pg (27.0-32.0); Mean Corpuscular Volume 91.3 fL (80-94); Mean Platelet Vol. 10.9 fl (6.2-12.0); Monocyte# 0.94 X10^3/uL; NRBC Flagged by Analyzer 0 % (0-5); Neutrophil # 8.58 X10^3/uL (2.7-7.7); Platelet Count 370 K/mm3 (150-450); RBC Distribution Width CV 13.1 % (11.6-14.6); RBC Distribution Width SD 43.7 fl (35.1-43.9); Red Blood Count 5.16 M/mm3 (4.6-6.2); White Blood Count 11.8 K/mm3 (4.4-11.0)
[2022-10-02 17:14] VITALS: BP 131/79; PULSE 113; RESP 16; TEMP 36.2; O2SAT 95; BMI 36.7
--- NOTE | 2022-10-02 17:23 | ED.RN ---
pt clothing was soiled and d/y pt violate behavior unable to remove clothing clothing cut off
[2022-10-02 17:28] LABS: Alcohol, Blood (Medical)-Serum < 3.0 mg/dL
[2022-10-02 17:36] LABS: Anion Gap 19 (5-15); BUN 22 mg/dL (7-18); BUN/Creat Ratio 16.2 RATIO (10-20); Calcium,Total 9.8 mg/dL (8.5-10.1); Chloride 107 mmol/L (98-107); Creatinine, Serum 1.36 mg/dL (0.70-1.30); EST Glomerular Filtration Rate 64 mL/min (>60); Est Glom Filt Rate - Afr Amer 78 mL/min (>60); Glucose 114 mg/dL (74-106); Potassium 3.9 mmol/L (3.5-5.1); Sodium Level 144 mmol/L (136-145)
--- NOTE | 2022-10-02 17:43 | ED.RN ---
pt snoring. no distress noted. right wrist and left ankle restraint removed. sitter remains at bedside.
--- NOTE | 2022-10-02 18:00 | ED.RN ---
pt resting in bed. snoring vss. breathing even and unlabored. restrains removed.
[2022-10-02 18:34] VITALS: BP 109/72; PULSE 99; RESP 20; O2SAT 98
[2022-10-02 19:27] LABS: Acetaminophen (Tylenol) Level < 2.0 ug/mL (10.0-30.0); Salicylate 3.1 mg/dL (2.8-20.0)
--- NOTE | 2022-10-02 20:23 | CM.ED ---
Murali called Jennifer at [facility] and gave update regarding patient. Patient is still sleeping and thus assessment not completed. MURALI faxed referral packet to Jennifer at crisis. Madeline MA
--- NOTE | 2022-10-02 20:47 | CT_ITS ---
INDICATION: changed mental status EXAMINATION: CT Head or Brain W/O Contrast Injection TECHNIQUE: Multiple axial images were obtained of the head without intravenous contrast. A radiation dose optimization technique was used for this scan. IV Contrast dosage and agent: None. COMPARISON: None FINDINGS: BRAIN PARENCHYMA: No intra- or extra-axial hemorrhage. No evidence of acute major territorial infarct. No intracranial mass or mass effect. There is preservation of the frederick/white matter interface. Posterior fossa structures are unremarkable. CSF SPACES: Appropriate for age. No hydrocephalus. Basal cisterns are patent. CALVARIUM, SKULL BASE, PARANASAL SINUSES AND MASTOID AIR CELLS: Calvarium is intact. No acute findings within paranasal sinuses. Mastoid air cells are well-pneumatized. ORBITS: Chronic left medial orbit fracture. Globes are intact. CT/Brain/Head without Contrast IMPRESSION: No evidence of acute intracranial abnormality. Electronically Signed: Chase Jeffers MD at 22:47 EST ,
[2022-10-02 21:17] VITALS: BP 106/65; PULSE 117; RESP 37; O2SAT 97
[2022-10-02] MEDS: LORazepam 2 MG/ML Syringe IV (21:24)
[2022-10-02 22:20] LABS: Amphetamine Urine VISTA NEGATIVE (<1000 ng/mL); Barbiturate Urine VISTA NEGATIVE (< 200 ng/mL); Benzodiazepine Urine VISTA NEGATIVE (< 200 ng/mL); Cocaine Urine VISTA NEGATIVE (< 300 ng/mL); Ecstacy Urine VISTA NEGATIVE (< 500 ng/mL); Methadone Urine VISTA NEGATIVE (< 300 ng/mL); PCP Urine VISTA NEGATIVE (< 25 ng/mL); THC Urine VISTA NEGATIVE (< 50 ng/mL); Vista UDS pH Range 4
[2022-10-02 22:34] VITALS: BP 121/93; PULSE 95; RESP 18; O2SAT 95
[2022-10-02 22:50] LABS: Anion Gap 14 (5-15); BUN 16 mg/dL (7-18); Calcium,Total 8.7 mg/dL (8.5-10.1); Chloride 111 mmol/L (98-107); EST Glomerular Filtration Rate 139 mL/min (>60); Est Glom Filt Rate - Afr Amer 168 mL/min (>60); Estimated Creatinine Clearance 164.75 ml/min; Glucose 89 mg/dL (74-106); Potassium 3.7 mmol/L (3.5-5.1); Sodium Level 144 mmol/L (136-145)
[2022-10-02 23:00] VITALS: BP 124/77; PULSE 103; RESP 19; O2SAT 97
[2022-10-03] VITALS (13 sets, daily range): BP systolic 122–147; BP diastolic 65–82; PULSE 59–117; RESP 12–30; O2SAT 91–98
[2022-10-03] MEDS: Ziprasidone IM 20 MG/ML VIAL IM (04:59)
--- NOTE | 2022-10-03 08:18 | ED.RN ---
Pt. asleep in bed. VSS. All 4 restraints removed at this time.
--- NOTE | 2022-10-03 09:17 | ED.RN ---
pt. sat up and ate breakfast. Laid back down and currently resting.
[2022-10-03] MEDS: Propranolol LA 60 MG Capsule PO (10:42)
[2022-10-03] MEDS: Cholecalciferol (VIT D3) 25 MCG TABLET (1,000 UNITS) 50 MCG PO (10:43)
[2022-10-03] MEDS: metFORMIN HCl 1,000 MG Tablet 1000 MG PO (10:43)
[2022-10-03] MEDS: Docusate Sodium 100 MG Capsule PO (10:43)
--- NOTE | 2022-10-03 11:15 | ED.RN ---
[facility] CALLED INQUIRING ABOUT PTS LAST MEDICATION TIME AND HIS CURRENT BEHAVIOR. STATED THEY WOULD GET BACK WITH US AFTER TALKING WITH THEIR
--- NOTE | 2022-10-03 12:22 | CM.ED ---
Fina from [facility] called. Patient accepted at [facility]. Accepting MD is Josep. Going to [facility]. RN to RN is [phone]. Josephine from crisis updated this real estate underwriter as she had contacted guardian regarding consent for treatment for patient Plan: [facility] Madeline MA .
== END 2022-10-03 15:18 ==
PROVIDERS: Emergency Provider Emergency Medicine; Visit Provider Emergency Medicine
DX: F20.0 Paranoid schizophrenia (principal); R45.851 Suicidal ideations; Z79.899 Other long term (current) drug therapy
CPT/HCPCS: 70450; 80048; 80307; 80329; 82077; 85025; 87811; 93005; 96361; 96372; 96374; 99285; J7030; A4216; G0480; J3486